=== PATIENT | female | born 1965 | race Caucasian/White ===

== ENCOUNTER 2020-10-09 21:00 | Inpatient (IN) | payer OTHER ==
[~2020-10-09] VITALS: Ht 154.9 cm; Wt 90.7 kg
[~2020-10-09 21:00] MED LIST: DICLOFENAC SODI50 MG PO; N
== END 2020-10-16 13:40 | disposition home or self-care (01) | DRG 690 ==
LOC: ER 21:00 → MEDJ 10-10 14:04 → SEC-K 10-10 14:04 → MEDJ 10-10 16:29
PROVIDERS: ADMIT Internal Medicine; ATTEND Internal Medicine
PROC: BT43ZZZ Ultrasonography of Bilateral Kidneys (ICD-10-PCS; principal; 2020-10-10)
PROC: BW21ZZZ Computerized Tomography (CT Scan) of Abdomen and Pelvis (ICD-10-PCS; 2020-10-10)
PROC: BU4CZZZ Ultrasonography of Uterus and Ovaries (ICD-10-PCS; 2020-10-12)
DX: N10 Acute pyelonephritis (principal); Z20.822 Contact with and (suspected) exposure to COVID-19; N83.291 Other ovarian cyst, right side